=== PATIENT | male | born 1985 | race Caucasian/White ===

== ENCOUNTER 2022-07-25 15:13 | Emergency (ER) | payer BC, SELFPAY ==
[2022-07-25 15:19] VITALS: BP 172/86; PULSE 73; RESP 18; TEMP 36.6; O2SAT 97; BMI 28.3
--- NOTE | 2022-07-25 15:34 | ECG_ITS ---
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
--- NOTE | 2022-07-25 15:52 | ED_ITS ---
Documented by User: Remi Whalen DO 07/25/22 18:01 HPI - Chest Pain General: Chief Complaint: Chest Pain Stated Complaint: chest tightness Time Seen by Provider: 07/25/22 15:29 Source: patient Mode of arrival: ambulatory History of Present Illness: 36-year-old male presents emergency room with c omplaint of chest pain. He had this intermittently for the last 2 months. He seen his primary care doctor he was referred to cardiology he has not had any formal cardiac evaluation no stress test or echocardiograms. Patient states that at various times he will get chest pain sometimes associated with exertion other times while he is at rest. He has noticed he fatigues easily and his exercise tolerance and work tolerance has been significantly less over the last 2 months. Seems to have been worse especially over this last week. He has chest discomfort now that he has had since yesterday. 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 MD complaint: chest pain Onset (ago): month(s) (2) Timing of current episode: episodic Prior episodes: Yes Onset: during rest and during exertion Pain location: left chest Severity: moderate Quality: tightness and aching Relieving factors: rest Exacerbating factors: exertion Associated symptoms: Reports dyspnea; Deny abdominal pain, diaphoresis, fever(s), leg edema, nausea, palpitations, sen se of impending doom, syncope or vomiting Treatment prior to arrival: aspirin Review of Systems Const: Denies: fever(s) or diaphoresis ENMT: Denies: throat pain, ear or mastoid pain, nasal discharge or nasal congestion Card: Denies: palpitations or syncope Resp: Reports: dyspnea GI: Denies: abdominal pain, nausea or vomiting : Denies: flank pain, dysuria, urinary frequency or urinary urgency Skin/Breast: Denies: rash or pruritus Physical Exam Const: GENERAL APPEARANCE: cooperative and comfortable OR IENTATION/CONSCIOUSNESS: Yes awake, Yes oriented to person, Yes oriented to place and Yes oriented to time HENMT: COMMON NORMALS: normocephalic, atraumatic and hearing grossly normal bilaterally HEAD & SCALP: normocephalic and atraumatic Resp: COMMON NORMALS: normal respiratory effort, No retractions, No use of accessory muscles and clear to auscultation bilaterally AUSCULTATION: clear to auscultation bilaterally Cardio: COMMON NORMALS: regular rate, regular rhythm and No murmurs present (Cardio) RATE: regular rate RHYTHM: regular rhythm GI: COMMON NORMALS: Soft to palpation and No hepatosplenomegaly present AUSCULTATION: Yes normoactive bowel sounds PALPATION: Yes Soft to palpation, No Tenderness to palpation present (GI), No Guarding due to palpation present (GI) and Yes No hepatosplenomegaly present Extremity: COMMON NORMALS: normal to inspection, capillary refill normal, no clubbing, cyanosis or edema, no calf tenderness and no pedal edema Neuro: SENSORIUM/ORIENTATION: Yes oriented to person, Yes oriented to place and Yes oriented to time Skin: COMMON NORMALS: no rashes or lesions noted GENERAL SKIN EXAM: no rashes or lesions noted Course Vital Signs: Vital signs: Vital Signs Temperature 97.9 F 07/25/22 15:19 Pulse Rate 73 07/25/22 15:19 Respiratory Rate 18 07/25/22 15:19 Blood Pressure 172/86 07/25/22 15:19 Pulse Oximetry 97 07/25/22 15:19 Oxygen Delivery Me thod 07/25/22 15:19 MDM - Chest Pain Medical Decision Making Care signed out to Dr. Jimenez at change of shift. See final notes for diagnosis and disposition. Lab Data 07/25/22 16:08 07/25/22 16:08 Radiology Impressions Chest X-Ray 07/25/22 18:35 IMPRESSION: No acute findings. Laboratory Results WBC 8.2 10^3/uL (4.0-10.0) 07/25/22 16:08 RBC 5.21 10^6/uL (4.1-5.3) 07/25/22 16:08 Hgb 15.9 g/dL (11.7-16.6) 07/25/22 16:08 Hct 46.4 % (42.0-52.0) 07/25/22 16:08 MCV 89.1 fl (80-94) 07/25/22 16:08 MCH 30.5 pg (28.0-34.0) 07/25/22 16:08 MCHC 34.3 g/dL (30.0-36.0) 07/25/22 16:08 RDW 11.6 % (12.1-15.1) L 07/25/22 16:08 Plt Count 242 10^3/cmm (130-400) 07/25/22 16:08 MPV 10.5 fL (7.4-10.4) H 07/25/22 16:08 Neut % (Auto) 57.1 % 07/25/22 16:08 Lymph % (Auto) 29.1 % 07/25/22 16:08 [place] % (Auto) 9.2 % 07/25/22 16:08 Eos % (Auto) 3.9 % 07/25/22 16:08 Baso % (Auto) 0.5 % 07/25/22 16:08 Neut # (Auto) 4.69 10^3/uL (1.8-7.7) 07/25/22 16:08 Lymph # (Auto) 2.4 10^3/uL (0.8-4.8) 07/25/22 16:08 [place] # (Auto) 0.8 10^3/uL (0.2-0.9) 07/25/22 16:08 Eos # (Auto) 0.3 10^3/uL (0.0-0.8) 07/25/22 16:08 Baso # (Auto) 0.0 10^3/uL (0.0-0.1) 07/25/22 16:08 Nucleated RBC % (auto) 0 % 07/25/22 16:08 Nucleated RBCs # 0.0 /100WBC 07/25/22 16:08 Sodium 144 mmol/L (136-145) 07/25/22 16:08 Potassium 4.4 mmol/L (3.5-5.1) 07/25/22 16:08 Chloride 104 mmol/L (98-107) 07/25/22 16:08 Carbon Dioxide 30 mmol/L (22-29) H 07/25/22 16:08 Anion Gap 14.4 (5-19) 07/25/22 16:08 BUN 10 mg/dL (6-20) 07/25/22 16:08 Creatinine 1.0 mg/dL (0.7-1.2) 07/25/22 16:08 GFR Calculation 83.6 mL/min (90-130) L 07/25/22 16:08 Glucose 118 mg/dL (65-115) H 07/25/22 16:08 Calculated Osmolality 298 mOsm/kg (285-295) H 07/25/22 16:08 Calcium 9.7 mg/dL (8.5-10.5) 07/25/22 16:08 Total Bilirubin 0.3 mg/dL (0.15-1.2) 07/25/22 16:08 AST 26 U/L (0-40) 07/25/22 16:08 ALT 41 U/L (0-41) 07/25/22 16:08 Alkaline Phosphatase 91 U/L (40-130) 07/25/22 16:08 Troponin T Baseline 6 ng/L (0-15) 07/25/22 16:08 Troponin T 120 Minute 6.00 ng/L (0-15) 07/25/22 18:15 Delta Troponin T 0 ABS# (0-10) 07/25/22 18:15 Total Protein 7.2 g/dL (6.6-8.7) 07/25/22 16:08 Albumin 4.8 g/dL (3.5-5.2) 07/25/22 16:08 Globulin 2.4 g/dL (1.3-4.6) 07/25/22 16:08 Discharge Plan Discharge Patient Disposition: Home Clinical Impression: Chest pain Condition: Stable Prescriptions: No Action buprenorphine HCl 8 mg Tablet, Sublingual 8 mg SUBLINGUAL BID Discharge Orders: Discharge ED (Routine); Ordered 07/25/22 Ordered By: Andrea Jimenez Referrals: Nina Walters [Primary Care Provider] - 1-3 days Patient Instructions: Chest Pain (ED), Opioid Safety, Pain Management Activity Restrictions/Additional Instructions: Case management has been contacted to set up an outpatient stress test for you. Follow-up with cardiology as scheduled. Follow-up to primary physician next week. Return for worsening pain, shortness of breath, other concerning symptoms. Coding Level of Care Code ED Loss Prevention Operations Manager for Chg Fwd Documented by User: Andrea Jimenez DO 07/25/22 22:14 HPI - Chest Pain General: Chief Complaint: Chest Pain Stated Complaint: chest tightness Time Seen by Provider: 07/25/22 15:29 Course Vital Signs: Vital signs: Vital Signs Temperature 97.9 F 07/25/22 15:19 Pulse Rate 73 07/25/22 15:19 Respiratory Rate 18 07/25/22 15:19 Blood Pressure 172/86 07/25/22 15:19 Pulse Oximetry 97 07/25/22 15:19 Oxygen Delivery Me thod 07/25/22 15:19 MDM - Chest Pain Medical Decision Making Care signed out to Dr. Jimenez at change of shift. See final notes for diagnosis and disposition. 36-year-old male with chest discomfort signed out to me at shift change by Dr. Whalen. The patient's vital signs are stable. Blood pressure 123/88, pulse ox is 95%. He has been mildly bradycardic on the monitor, in the mid 50s to upper 50s his chest discomfort has been going on for quite some time, on and off. He has a cardiology follow-up appointment. This is in August. His EKG initially showed a sinus rhythm with a rate of 70, normal axis and intervals, no acute ST changes. Follow-up at 2 hours shows sinus bradycardia with a rate of 60, again normal axis intervals, no ST wave changes. His troponin is 6. His other laboratory is not remarkable. His chest x-ray is negative. Outpt stress is ordered for him. He'll be allowed discharge. Lab Data 07/25/22 16:08 07/25/22 16:08 Radiology Impressions Chest X-Ray 07/25/22 18:35 IMPRESSION: No acute findings. Laboratory Results WBC 8.2 10^3/uL (4.0-10.0) 07/25/22 16:08 RBC 5.21 10^6/uL (4.1-5.3) 07/25/22 16:08 Hgb 15.9 g/dL (11.7-16.6) 07/25/22 16:08 Hct 46.4 % (42.0-52.0) 07/25/22 16:08 MCV 89.1 fl (80-94) 07/25/22 16:08 MCH 30.5 pg (28.0-34.0) 07/25/22 16:08 MCHC 34.3 g/dL (30.0-36.0) 07/25/22 16:08 RDW 11.6 % (12.1-15.1) L 07/25/22 16:08 Plt Count 242 10^3/cmm (130-400) 07/25/22 16:08 MPV 10.5 fL (7.4-10.4) H 07/25/22 16:08 Neut % (Auto) 57.1 % 07/25/22 16:08 Lymph % (Auto) 29.1 % 07/25/22 16:08 [place] % (Auto) 9.2 % 07/25/22 16:08 Eos % (Auto) 3.9 % 07/25/22 16:08 Baso % (Auto) 0.5 % 07/25/22 16:08 Neut # (Auto) 4.69 10^3/uL (1.8-7.7) 07/25/22 16:08 Lymph # (Auto) 2.4 10^3/uL (0.8-4.8) 07/25/22 16:08 [place] # (Auto) 0.8 10^3/uL (0.2-0.9) 07/25/22 16:08 Eos # (Auto) 0.3 10^3/uL (0.0-0.8) 07/25/22 16:08 Baso # (Auto) 0.0 10^3/uL (0.0-0.1) 07/25/22 16:08 Nucleated RBC % (auto) 0 % 07/25/22 16:08 Nucleated RBCs # 0.0 /100WBC 07/25/22 16:08 Sodium 144 mmol/L (136-145) 07/25/22 16:08 Potassium 4.4 mmol/L (3.5-5.1) 07/25/22 16:08 Chloride 104 mmol/L (98-107) 07/25/22 16:08 Carbon Dioxide 30 mmol/L (22-29) H 07/25/22 16:08 Anion Gap 14.4 (5-19) 07/25/22 16:08 BUN 10 mg/dL (6-20) 07/25/22 16:08 Creatinine 1.0 mg/dL (0.7-1.2) 07/25/22 16:08 GFR Calculation 83.6 mL/min (90-130) L 07/25/22 16:08 Glucose 118 mg/dL (65-115) H 07/25/22 16:08 Calculated Osmolality 298 mOsm/kg (285-295) H 07/25/22 16:08 Calcium 9.7 mg/dL (8.5-10.5) 07/25/22 16:08 Total Bilirubin 0.3 mg/dL (0.15-1.2) 07/25/22 16:08 AST 26 U/L (0-40) 07/25/22 16:08 ALT 41 U/L (0-41) 07/25/22 16:08 Alkaline Phosphatase 91 U/L (40-130) 07/25/22 16:08 Troponin T Baseline 6 ng/L (0-15) 07/25/22 16:08 Troponin T 120 Minute 6.00 ng/L (0-15) 07/25/22 18:15 Delta Troponin T 0 ABS# (0-10) 07/25/22 18:15 Total Protein 7.2 g/dL (6.6-8.7) 07/25/22 16:08 Albumin 4.8 g/dL (3.5-5.2) 07/25/22 16:08 Globulin 2.4 g/dL (1.3-4.6) 07/25/22 16:08 Discharge Plan Discharge Patient Disposition: Home Clinical Impression: Chest pain Condition: Stable Prescriptions: No Action buprenorphine HCl 8 mg Tablet, Sublingual 8 mg SUBLINGUAL BID Discharge Orders: Discharge ED (Routine); Ordered 07/25/22 Ordered By: Andrea Jimenez Referrals: Nina Walters [Primary Care Provider] - 1-3 days Patient Instructions: Chest Pain (ED), Opioid Safety, Pain Management Activity Restrictions/Additional Instructions: Case management has been contacted to set up an outpatient stress test for you. Follow-up with cardiology as scheduled. Follow-up to primary physician next week. Return for worsening pain, shortness of breath, other concerning symptoms. Coding Level of Care Code ED Loss Prevention Operations Manager for Tammy Kim
[2022-07-25] MEDS: aspirin 81 mg Chew Tablet 324 MG PO (15:56)
[2022-07-25 16:18] LABS: Basophils % 0.5 %; Eosinophils # 0.3 10^3/uL (0.0-0.8); Eosinophils % 3.9 %; Hematocrit 46.4 % (42.0-52.0); Hemoglobin 15.9 g/dL (11.7-16.6); Lymphocytes # 2.4 10^3/uL (0.8-4.8); Lymphocytes % 29.1 %; Mean Corpuscular HGB Conc 34.3 g/dL (30.0-36.0); Mean Corpuscular Hemoglobin 30.5 pg (28.0-34.0); Mean Corpuscular Volume 89.1 fl (80-94); Mean Platelet Volume 10.5 fL (7.4-10.4); Monocytes # 0.8 10^3/uL (0.2-0.9); Monocytes % 9.2 %; Neutrophils # 4.69 10^3/uL (1.8-7.7); Neutrophils % 57.1 %; Nucleated Red Blood Cells % 0 %; Platelet Count 242 10^3/cmm (130-400); Red Blood Count 5.21 10^6/uL (4.1-5.3); Red Cell Distribution Width 11.6 % (12.1-15.1); White Blood Count 8.2 10^3/uL (4.0-10.0)
[2022-07-25 16:32] LABS: Troponin(5th) Baseline 6 ng/L (0-15)
[2022-07-25 16:34] LABS: Alanine Aminotransferase 41 U/L (0-41); Albumin Level 4.8 g/dL (3.5-5.2); Alkaline Phosphatase 91 U/L (40-130); Anion Gap 14.4 (5-19); Aspartate Amino Transferase 26 U/L (0-40); Blood Urea Nitrogen 10 mg/dL (6-20); Calcium 9.7 mg/dL (8.5-10.5); Carbon Dioxide 30 mmol/L (22-29); Chloride 104 mmol/L (98-107); Globulin 2.4 g/dL (1.3-4.6); Glomerular Filtration Rate 83.6 mL/min (90-130); Glucose 118 mg/dL (65-115); Osmolality Calculated 298 mOsm/kg (285-295); Potassium 4.4 mmol/L (3.5-5.1); Sodium 144 mmol/L (136-145); Total Bilirubin 0.3 mg/dL (0.15-1.2); Total Protein 7.2 g/dL (6.6-8.7)
--- NOTE | 2022-07-25 17:51 | ECG_ITS ---
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
--- NOTE | 2022-07-25 18:35 | XRR_ITS ---
PROCEDURE INFORMATION: Exam: XR Chest Exam date and time: 07/25/2022 6:47 PM Age: 36 years old Clinical indication: Pain; Chest pressure; Additional info: Chest pain TECHNIQUE: Imaging protocol: Radiologic exam of the chest. Views: 1 view. COMPARISON: No relevant prior studies available. FINDINGS: Lungs: Unremarkable. No consolidation. Pleural spaces: Unremarkable. No pleural effusion. No pneumothorax. Heart/Mediastinum: Unremarkable. No cardiomegaly. Bones/joints: Unremarkable. XR/XR chest 1V portable [id number] IMPRESSION: No acute findings.
[2022-07-25 18:45] LABS: Troponin 5 2HR Delta 0 ABS# (0-10)
--- NOTE | 2022-07-25 18:48 | PC.NURSE ---
REPORT GIVEN TO GRISEL RN ASSUMED CARE.
--- NOTE | 2022-07-28 12:43 | DCPLANNER ---
Addendum entered by Era Ann 09/03/22 08:25: Patient had an out patient stress test scheduled - patient did attend appointment. Addendum entered by Era Ann 08/21/22 08:24: Patient has an outpatient stress test scheduled for Monday, August 29, 2022 at 2:30 Original Note: manager enrollment had message to schedule an outpatient stress test for patient. manager enrollment faxed signed order to centralized scheduling, who will call patient with appointment information.
== END 2022-07-25 20:23 | disposition home or self-care (01) ==
PROVIDERS: Family Medicine; Emergency Provider Emergency Medicine; PCP Nurse Practitioner Family
DX: R07.9 Chest pain, unspecified (principal)
CPT/HCPCS: 36415; 71045; 80053; 84484; 85025; 93005; 99285

== ENCOUNTER 2022-08-29 09:24 | Outpatient (CLI) | payer BC, SELFPAY ==
--- NOTE | 2022-08-29 | ECG_ITS ---
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 Interpretive Statements NAME OF STUDY: LEXISCAN SESTAMIBI STRESS TEST INDICATION: Chest Pain, PROCEDURE: At the baseline, the EKG revealed normal sinus rhythm with a normal ST Ts.. The baseline heart was 72 bpm with a blood pressue of 130/75 mm of Hg Lexiscan was infused over a period of 20 seconds. A total of 0.4 milligrams of Lexiscan was infused. The stress phase was continued for a total of 5 minutes. Heart rate at the end of the stress phase was 98 bpm with a blood pressure 184/54 mm of Hg. The EKG at the peak infusion revealed no significant changes. Sestamibi was injected 20 seconds after the Lexiscan infusion. Heart rate at the end of the recovery phase was 98 bpm with a blood pressure of 184/64 mm of Hg. CONCLUSION: 1. No significant EKG changes with the LexiScan infusion 2. No LexiScan induced chest pain or cardiac arrhythmia 3. Normal blood pressure and heart rate response 4. Sestamibi/sestamibi perfusion scan pending; see separate report. Electronically Signed On 08-31-2022 18:15:55 CDT by Franny Mijares M.D. [id number]
[2022-08-29 09:47] VITALS: BMI 28.5
--- NOTE | 2022-08-29 10:03 | NMCV_ITS ---
[place] perf SPECT r/s* [id number] Kade Alberts Age: 37 Gender: M : 1985 Exam Date: 08/29/2022 10:58 Ordering Phys: Remi Whalen DO Technologist: NORM Negron Exam Location: [facility] Indications: CHEST PAIN STRESS TEST Please see separate stress test report in [facility] for full findings IMAGE PROTOCOL Rest/Stress 1 Lexiscan Day Radiopharmaceutical Dose (mCi) Administration Site Administered by Rest: Tc-99m 11.0 IV Armando Kaufman, PRODUCTION DIRECTOR Sestamibi Stress:Tc-99m 31.3 IV Armando Kaufman, PRODUCTION DIRECTOR Sestamibi Rest: 29-Aug-2022 60 Discovery 630 Stress: 29-Aug-2022 30 Discovery 630 0.4mg Lexiscan. Images obtained in supine and prone position. SPECT RESULTS Technical Quality: Excellent Raw Data Analysis: Normal Image Corrections: No attenuation or motion correction applied Summed Stress Score: 0 Summed Rest Score: 0 Summed Difference Score: 0 PERFUSION FINDINGS SPECT images demonstrate homogeneous tracer distribution throughout the myocardium. FUNCTIONAL RESULTS (calculated via Gated SPECT) Stress Image LV EF (%): 79 Stress EDV (mL):124 TID: 0.81 Stress ESV (mL):26 FUNCTIONAL FINDINGS: There is normal left ventricular systolic function. IMPRESSIONS 1. Normal myocardial perfusion imaging with no evidence of ischemia 2. LV systolic function is normal Janes Paz MD (Electronically Signed) Final Date: 01 September 2022 12:26 S
[2022-08-29] MEDS: regadenoson 0.4 Mg/5 ml Syringe IVP (11:50)
[2022-08-29 12:15] VITALS: BP 135/75; PULSE 65
== END 2022-08-29 09:25 | disposition home or self-care (01) ==
PROVIDERS: PCP Nurse Practitioner Family; Visit Provider Family Medicine
DX: R07.9 Chest pain, unspecified (principal)
CPT/HCPCS: 36415; 78452; 93017; 96374; A9500; J2785